=== PATIENT | female | born 1960 | race African-American/Black ===

== ENCOUNTER 2018-03-27 10:14 | Inpatient (IN) ==
[2018-03-27] MEDS ORDERED: ALBUTEROL/IPRATROPIUM 3 ML NEB RESP TX STA (11:26)
[2018-03-27] MEDS ORDERED: methylPREDNISolone SOD SUC 125 MG/2 ML VIAL IV STA (11:27)
[2018-03-27 12:20] LABS: Basophils % 0.2 % (0.0-0.8); Eosinophils % 0.1 % (0.00-10.9); Immature Granulocytes % 0.8 %; Immature Granulocytes Absolute 0.07 #; Lymphocytes # 0.9 10*3/uL (1.4-4.0); Lymphocytes % 10.8 % (21.3-54.2); Mean Corpuscular Hemoglobin 55 PG (27-34); Mean Corpuscular Volume 110.3 FL (87-102); Mean Platelet Volume 8.5 FL (9.6-12.0); Monocytes # 0.6 10*3/uL (0.11-0.8); Monocytes % 7.3 % (1.7-12.7); NRBC # 0.06 10*3/uL; Neutrophils # 6.8 10*3/uL (1.4-7.4); Neutrophils % 80.8 % (38.7-73.9); Platelet Count 391 T/CUMM (130-400); Red Blood Count 1.16 MC/CUMM (3.8-5.5); Red Cell Distribution Width 32.9 % (9.3-17.3); White Blood Count 8.4 T/CUMM (4-12)
[2018-03-27 12:51] LABS: Albumin 3.7 G/DL (3.4-5.0); Bilirubin,Total 2.5 MG/DL (0.2-1.0); Calcium 9.4 MG/DL (8.5-10.1); Osmolality,Calculated 267.1 MOS/KG (273-304); Potassium 3.9 MMOL/L (3.5-5.1)
[2018-03-27 12:54] LABS: Hematocrit 12.8 VOL% (35.7-47.0); Hemoglobin 6.4 GM/DL (12.0-16.0)
[2018-03-27] MEDS ORDERED: SODIUM CHLORIDE 0.9% 1,000 ML IV PRN ×2 (14:17→17:34)
[2018-03-27 14:36] LABS: Anisocytosis 1+; Microcytosis 1+; Polychromasia 2+; Spherocytes Few; Tear Drop Cells Few
[2018-03-27 14:37] LABS: Platelet Estimate Normal
[2018-03-27 15:33] LABS: Basophils % 0.2 % (0.0-0.8); Eosinophils % 0.1 % (0.00-10.9); Hematocrit 18.5 VOL% (35.7-47.0); Immature Granulocytes % 1.5 %; Immature Granulocytes Absolute 0.14 #; Lymphocytes # 0.5 10*3/uL (1.4-4.0); Mean Corpuscular HGB Conc 30.8 GM/DL (32-36); Mean Corpuscular Hemoglobin 30 PG (27-34); Mean Corpuscular Volume 95.9 FL (87-102); Mean Platelet Volume 8.7 FL (9.6-12.0); Monocytes # 0.2 10*3/uL (0.11-0.8); Monocytes % 2.1 % (1.7-12.7); NRBC # 0.07 10*3/uL; Neutrophils # 8.8 10*3/uL (1.4-7.4); Neutrophils % 91.1 % (38.7-73.9); Platelet Count 385 T/CUMM (130-400); Red Blood Count 1.93 MC/CUMM (3.8-5.5); Red Cell Distribution Width 20.4 % (9.3-17.3); White Blood Count 9.6 T/CUMM (4-12)
[2018-03-27] MEDS ORDERED: ONDANSETRON 4 MG/2 ML VIAL IV PRN (15:38)
[2018-03-27] MEDS ORDERED: MYLANTA/LIDO VISC 2:1 300 ML BOTTLE SWISH/SWAL PRN (15:38)
[2018-03-27] MEDS ORDERED: BENZTROPINE 2 MG/2 ML AMP IV PRN (15:38)
[2018-03-27] MEDS ORDERED: chlorproMAZINE INJ 50 MG in SODIUM CHLORIDE 0.9% 100 ML IV PRN (15:38)
[2018-03-27] MEDS ORDERED: chlorproMAZINE INJ 25 MG in SODIUM CHLORIDE 0.9% 100 ML IV PRN (15:38)
[2018-03-27] MEDS ORDERED: ACETAMINOPHEN 325 MG TABLET PO PRN (15:38)
[2018-03-27] MEDS ORDERED: MYLANTA/LIDO VISC 2:1 300 ML BOTTLE SWISH/SPIT PRN (15:38)
[2018-03-27] MEDS ORDERED: chlorproMAZINE 25 MG TABLET PO PRN (15:38)
[2018-03-27] MEDS ORDERED: ALUMINUM/MAGNES/SIMETH MAX STR 30 ML UDCUP PO PRN (15:38)
[2018-03-27] MEDS ORDERED: TEMAZEPAM 7.5 MG CAPSULE PO PRN (15:38)
[2018-03-27] MEDS ORDERED: MAGNESIUM HYDROXIDE SUSP 30 ML UDCUP PO PRN (15:38)
[2018-03-27] MEDS ORDERED: LACTULOSE 20 GM/30 ML UDCUP PO PRN (15:38)
[2018-03-27] MEDS ORDERED: diphenhydrAMINE CAP 25 MG CAPSULE PO PRN (15:38)
[2018-03-27] MEDS ORDERED: LOPERAMIDE 2 MG CAPSULE PO PRN ×2 (15:38)
[2018-03-27] MEDS ORDERED: PROMETHAZINE INJ 25 MG in SODIUM CHLORIDE 0.9% 50 ML IV PRN (15:38)
[2018-03-27 15:39] LABS: Hemoglobin 5.7 GM/DL (12.0-16.0)
[2018-03-27] MEDS ORDERED: SODIUM CHLORIDE 0.9% 1,000 ML IV SCH (16:00)
[2018-03-27 16:06] LABS: Band Neutrophils 1 % (0-10); Lymphocytes 5 % (20-55); Segmented Neutrophils 92 % (50-85); Total Cells Counted 100
[2018-03-27 16:08] LABS: Anisocytosis 1+
[2018-03-27 16:09] LABS: Microcytosis 1+; Polychromasia 2+; Tear Drop Cells Few
[2018-03-27 16:12] LABS: Platelet Estimate Normal
[2018-03-27] MEDS: CEFEPIME 1,000 MG in SYRINGE 1 EACH IV SCH (18:44)
[2018-03-27] MEDS: ALBUTEROL/IPRATROPIUM 3 ML NEB RESP TX SCH (20:40)
[2018-03-28] MEDS: ALBUTEROL/IPRATROPIUM 3 ML NEB RESP TX SCH ×4 (00:10→19:32)
[2018-03-28] MEDS: CEFEPIME 1,000 MG in SYRINGE 1 EACH IV SCH ×2 (05:28→17:36)
[2018-03-28 05:56] LABS: Basophils % 0.2 % (0.0-0.8); Hematocrit 23.8 VOL% (35.7-47.0); Hemoglobin 7.8 GM/DL (12.0-16.0); Immature Granulocytes % 0.9 %; Lymphocytes # 0.8 10*3/uL (1.4-4.0); Lymphocytes % 7.7 % (21.3-54.2); Mean Corpuscular HGB Conc 32.8 GM/DL (32-36); Mean Corpuscular Hemoglobin 33 PG (27-34); Mean Corpuscular Volume 99.2 FL (87-102); Mean Platelet Volume 8.5 FL (9.6-12.0); Monocytes % 9.8 % (1.7-12.7); NRBC # 0.07 10*3/uL; Neutrophils # 8.6 10*3/uL (1.4-7.4); Neutrophils % 81.4 % (38.7-73.9); Platelet Count 322 T/CUMM (130-400); White Blood Count 10.6 T/CUMM (4-12)
[2018-03-28 08:07] LABS: Calcium 8.7 MG/DL (8.5-10.1); Potassium 4.4 MMOL/L (3.5-5.1)
[2018-03-28] MEDS ORDERED: PANTOPRAZOLE 40 MG VIAL IV SCH (09:00)
[2018-03-28] MEDS: FOLIC ACID 1 MG TABLET PO SCH (10:09)
[2018-03-28 10:41] LABS: Apearance,Urine CLEAR (Clear); Bilirubin,Urine Negative (Negative); Blood, Urine Negative (Negative); Glucose,Urine (UA) 150 mg/dL (Negative); Ketones,Urine Negative (Negative); Mucus,Urine Occasional /LPF (Occasional); Nitrite,Urine Negative (Negative); Protein,Urine Negative; Squamous Epithelial Cell,Urine Occasional /HPF (0-10); Urine Color Yellow (Yellow); Urine Specific Gravity 1.017 (1.001-1.035); WBC,Urine 1 /HPF (0-6)
[2018-03-28 13:12] LABS: Anisocytosis 3+; Poikilocytosis 2+; Polychromasia 1+; Tear Drop Cells Slight
[2018-03-28] MEDS: ALPRAZolam 0.25 MG TABLET PO PRN ×2 (14:47→19:04)
[2018-03-28] MEDS: traMADol 50 MG TABLET PO PRN ×2 (14:47→19:03)
[2018-03-28 18:17] LABS: Lymphocytes,Pleural Fluid 57 %; Monocytes,Pleural Fluid 4 %; Neutrophils,Pleural Fluid 39 %
[2018-03-28 18:18] LABS: RBC,Pleural Fluid > 100000 T/CUMM
[2018-03-28] MEDS: MEPERIDINE 25 MG/1 ML VIAL IV PRN (21:24)
[2018-03-29] MEDS: ALBUTEROL/IPRATROPIUM 3 ML NEB RESP TX SCH ×4 (00:49→19:30)
[2018-03-29 04:21] LABS: Bilirubin,Total 2.1 MG/DL (0.2-1.0); Calcium 8.6 MG/DL (8.5-10.1); Osmolality,Calculated 272.8 MOS/KG (273-304); Total Protein 6.7 G/DL (6.4-8.3)
[2018-03-29 04:28] LABS: Total Protein 6.6 G/DL (6.4-8.3)
[2018-03-29] MEDS: CEFEPIME 1,000 MG in SYRINGE 1 EACH IV SCH ×2 (04:57→17:05)
[2018-03-29 05:23] LABS: Basophils % 0.2 % (0.0-0.8); Eosinophils % 0.2 % (0.00-10.9); Hematocrit 26.1 VOL% (35.7-47.0); Hemoglobin 8.4 GM/DL (12.0-16.0); Immature Granulocytes % 0.7 %; Immature Granulocytes Absolute 0.08 #; Mean Corpuscular HGB Conc 32.2 GM/DL (32-36); Mean Corpuscular Hemoglobin 30 PG (27-34); Mean Corpuscular Volume 94.2 FL (87-102); Mean Platelet Volume 8.4 FL (9.6-12.0); Monocytes # 0.7 10*3/uL (0.11-0.8); Monocytes % 5.7 % (1.7-12.7); NRBC # 0.04 10*3/uL; Neutrophils # 10.4 10*3/uL (1.4-7.4); Neutrophils % 85.2 % (38.7-73.9); Platelet Count 294 T/CUMM (130-400); Red Blood Count 2.77 MC/CUMM (3.8-5.5); Red Cell Distribution Width 20.7 % (9.3-17.3); White Blood Count 12.2 T/CUMM (4-12)
[2018-03-29 05:36] LABS: Hypochromasia 1+; Platelet Estimate Adequate
[2018-03-29 05:37] LABS: Microcytosis Slight
[2018-03-29 07:52] LABS: Immunoglobulin A (Chem) 212 MG/DL (70-400); Immunoglobulin G (Chem) 1040 MG/DL (700-1600); Immunoglobulin M (Chem) 66 MG/DL (40-230); Total Protein (Chem) 6.6 G/DL (6.4-8.3)
[2018-03-29] MEDS: FOLIC ACID 1 MG TABLET PO SCH (08:05)
[2018-03-29] MEDS: guaiFENesin 200 MG/10 ML UDCUP PO PRN (08:05)
[2018-03-29 10:15] LABS: Albumin (SPE) 3.9 G/DL (3.2-5.3); Albumin (SPE) Rel % 59.4 %; Alpha 1 (SPE) 0.3 G/DL (0.1-0.4); Alpha 1 (SPE) Rel % 4.1 %; Alpha 2 (SPE) 0.7 G/DL (0.4-1.0); Alpha 2 (SPE) Rel % 10.5 %; Beta (SPE) 0.6 G/DL (0.5-1.1); Beta (SPE) Rel % 9.7 %; Gamma (SPE) 1.1 G/DL (0.7-1.7); Gamma (SPE) Rel % 16.3 %
[2018-03-29] MEDS: ALPRAZolam 0.25 MG TABLET PO PRN (11:30)
[2018-03-30] MEDS: MEPERIDINE 25 MG/1 ML VIAL IV PRN (00:36)
[2018-03-30] MEDS: ALBUTEROL/IPRATROPIUM 3 ML NEB RESP TX SCH ×4 (01:13→19:26)
[2018-03-30] MEDS: CEFEPIME 1,000 MG in SYRINGE 1 EACH IV SCH ×2 (04:06→17:05)
[2018-03-30] MEDS: FOLIC ACID 1 MG TABLET PO SCH (08:15)
[2018-03-30] MEDS: guaiFENesin 200 MG/10 ML UDCUP PO PRN (08:15)
[2018-03-30 08:32] LABS: Immuno Free Light Chain Kappa 2.06 MG/DL (0.33-1.94); Immuno Free Light Chain Lambda 1.86 MG/DL (0.57-2.63); Immuno Free Light Chain Ratio 1.11 MG/DL (0.26-1.65)
[2018-03-30] MEDS ORDERED: fentaNYL 12 MCG/HR PATCH TRANSDERM SCH (09:00)
[2018-03-30] MEDS: POLYETHYLENE GLYCOL POWDER 17 GM PACK PO SCH (09:09)
[2018-03-31] MEDS: ALBUTEROL/IPRATROPIUM 3 ML NEB RESP TX SCH ×3 (00:20→13:08)
[2018-03-31] MEDS: MEPERIDINE 25 MG/1 ML VIAL IV PRN ×2 (00:33→09:07)
[2018-03-31] MEDS: CEFEPIME 1,000 MG in SYRINGE 1 EACH IV SCH ×2 (05:39→17:14)
[2018-03-31] MEDS: POLYETHYLENE GLYCOL POWDER 17 GM PACK PO SCH (09:01)
[2018-03-31] MEDS: FOLIC ACID 1 MG TABLET PO SCH (09:01)
[2018-03-31 16:44] VITALS: BP 122/70
== END 2018-03-31 17:55 | disposition home or self-care (01) | DRG 181 ==
LOC: N.ED 10:14 → N.EDINP 15:38 → N.ICU 16:40 → N.4E 03-30 09:51
PROVIDERS: ADMIT Specialist; ATTEND Specialist

== ENCOUNTER 2018-04-07 15:04 | Inpatient (IN) ==
[2018-04-07] MEDS ORDERED: MYLANTA/LIDO VISC 2:1 300 ML BOTTLE SWISH/SWAL PRN (17:18)
[2018-04-07] MEDS ORDERED: traMADol 50 MG TABLET PO PRN (17:18)
[2018-04-07] MEDS ORDERED: LACTULOSE 20 GM/30 ML UDCUP PO PRN (17:18)
[2018-04-07] MEDS ORDERED: LOPERAMIDE 2 MG CAPSULE PO PRN ×2 (17:18)
[2018-04-07] MEDS ORDERED: ACETAMINOPHEN 325 MG TABLET PO PRN (17:18)
[2018-04-07] MEDS ORDERED: diphenhydrAMINE CAP 25 MG CAPSULE PO PRN (17:18)
[2018-04-07] MEDS ORDERED: chlorproMAZINE 25 MG TABLET PO PRN (17:18)
[2018-04-07] MEDS ORDERED: ONDANSETRON 4 MG/2 ML VIAL IV PRN (17:18)
[2018-04-07] MEDS ORDERED: TEMAZEPAM 7.5 MG CAPSULE PO PRN (17:18)
[2018-04-07] MEDS ORDERED: MAGNESIUM HYDROXIDE SUSP 30 ML UDCUP PO PRN (17:18)
[2018-04-07] MEDS ORDERED: MYLANTA/LIDO VISC 2:1 300 ML BOTTLE SWISH/SPIT PRN (17:18)
[2018-04-07] MEDS ORDERED: BENZTROPINE 2 MG/2 ML AMP IV PRN (17:18)
[2018-04-07] MEDS ORDERED: chlorproMAZINE INJ 25 MG in SODIUM CHLORIDE 0.9% 100 ML IV PRN (17:18)
[2018-04-07] MEDS ORDERED: ALPRAZolam 0.25 MG TABLET PO PRN (17:18)
[2018-04-07] MEDS ORDERED: ALUMINUM/MAGNES/SIMETH MAX STR 30 ML UDCUP PO PRN (17:18)
[2018-04-07] MEDS ORDERED: guaiFENesin 200 MG/10 ML UDCUP PO PRN (17:18)
[2018-04-07] MEDS ORDERED: PROMETHAZINE INJ 25 MG in SODIUM CHLORIDE 0.9% 50 ML IV PRN (17:18)
[2018-04-07] MEDS ORDERED: chlorproMAZINE INJ 50 MG in SODIUM CHLORIDE 0.9% 100 ML IV PRN (17:18)
[2018-04-07 18:54] LABS: Albumin 3.4 G/DL (3.4-5.0); Bilirubin,Total 3.6 MG/DL (0.2-1.0); Calcium 9.1 MG/DL (8.5-10.1); Osmolality,Calculated 267.1 MOS/KG (273-304); Total Protein 7.6 G/DL (6.4-8.3); Uric Acid 4.5 MG/DL (2.6-6.0)
[2018-04-07 19:15] LABS: Basophils % 0.2 % (0.0-0.8); Eosinophils % 0.1 % (0.00-10.9); Hematocrit 19.5 VOL% (35.7-47.0); Immature Granulocytes % 1.2 %; Immature Granulocytes Absolute 0.11 #; Lymphocytes % 10.4 % (21.3-54.2); Mean Corpuscular HGB Conc 32.3 GM/DL (32-36); Mean Corpuscular Hemoglobin 30 PG (27-34); Mean Corpuscular Volume 92.4 FL (87-102); Mean Platelet Volume 8.6 FL (9.6-12.0); Monocytes # 0.9 10*3/uL (0.11-0.8); Monocytes % 9.8 % (1.7-12.7); NRBC # 0.07 10*3/uL; Neutrophils # 7.5 10*3/uL (1.4-7.4); Neutrophils % 78.3 % (38.7-73.9); Platelet Count 372 T/CUMM (130-400); Red Blood Count 2.11 MC/CUMM (3.8-5.5); Red Cell Distribution Width 20.4 % (9.3-17.3); White Blood Count 9.6 T/CUMM (4-12)
[2018-04-07 19:24] LABS: Hemoglobin 6.3 GM/DL (12.0-16.0)
[2018-04-07 19:49] LABS: Hematocrit 19.5 VOL% (35.7-47.0); Red Blood Count 2.11 MC/CUMM (3.8-5.5); White Blood Count 9.6 T/CUMM (4-12)
[2018-04-07 19:50] LABS: Mean Corpuscular HGB Conc 32.3 GM/DL (32-36); Mean Corpuscular Hemoglobin 30 PG (27-34); Mean Corpuscular Volume 92.4 FL (87-102); Mean Platelet Volume 8.6 FL (9.6-12.0); Platelet Count 372 T/CUMM (130-400); Red Cell Distribution Width 20.4 % (9.3-17.3)
[2018-04-07 19:51] LABS: Basophils % 0.2 % (0.0-0.8); Eosinophils % 0.1 % (0.00-10.9); Immature Granulocytes % 1.2 %; Lymphocytes % 10.4 % (21.3-54.2); Monocytes # 0.9 10*3/uL (0.11-0.8); Monocytes % 9.8 % (1.7-12.7); Neutrophils % 78.3 % (38.7-73.9)
[2018-04-07 19:52] LABS: Immature Granulocytes Absolute 0.11 #; Neutrophils # 7.5 10*3/uL (1.4-7.4)
[2018-04-07 19:56] LABS: Hemoglobin 6.3 GM/DL (12.0-16.0)
[2018-04-07 21:59] LABS: Lymphocytes 13 % (20-55); Nucleated Red Blood Cells 1 (0-5); Segmented Neutrophils 79 % (50-85); Total Cells Counted 100
[2018-04-07 22:00] LABS: Macrocytosis Slight; Platelet Estimate Normal; Polychromasia 1+
[2018-04-07] MEDS: SODIUM CHLORIDE 0.9% 1,000 ML IV SCH (23:02)
[2018-04-08] MEDS: HYDROmorphone 2 MG/1 ML VIAL IV PRN ×2 (00:15→18:56)
[2018-04-08] MEDS ORDERED: SODIUM CHLORIDE 0.9% 1,000 ML IV PRN (00:35)
[2018-04-08] MEDS: FOLIC ACID 1 MG TABLET PO SCH (11:18)
[2018-04-08 12:37] LABS: Albumin 3.5 G/DL (3.4-5.0); Bilirubin,Total 3.9 MG/DL (0.2-1.0); Calcium 9.1 MG/DL (8.5-10.1); Osmolality,Calculated 267.1 MOS/KG (273-304); Potassium 3.6 MMOL/L (3.5-5.1); Total Protein 7.8 G/DL (6.4-8.3)
[2018-04-08 12:47] LABS: Basophils % 0.4 % (0.0-0.8); Eosinophils % 0.2 % (0.00-10.9); Hematocrit 27.1 VOL% (35.7-47.0); Hemoglobin 9.4 GM/DL (12.0-16.0); Immature Granulocytes % 1.3 %; Immature Granulocytes Absolute 0.13 #; Lymphocytes # 0.8 10*3/uL (1.4-4.0); Lymphocytes % 7.9 % (21.3-54.2); Mean Corpuscular HGB Conc 34.7 GM/DL (32-36); Mean Corpuscular Hemoglobin 34 PG (27-34); Mean Corpuscular Volume 96.8 FL (87-102); Mean Platelet Volume 8.6 FL (9.6-12.0); Monocytes # 0.8 10*3/uL (0.11-0.8); Monocytes % 8.4 % (1.7-12.7); NRBC # 0.07 10*3/uL; Neutrophils # 8.2 10*3/uL (1.4-7.4); Neutrophils % 81.8 % (38.7-73.9); Platelet Count 329 T/CUMM (130-400); Red Cell Distribution Width 21.9 % (9.3-17.3)
[2018-04-08 14:22] LABS: Anisocytosis 2+; Polychromasia 1+
[2018-04-08 14:23] LABS: Microcytosis 1+; Spherocytes Slight
[2018-04-08 14:25] LABS: Platelet Estimate Normal
[2018-04-08] MEDS: SODIUM CHLORIDE 0.9% 1,000 ML IV SCH (19:00)
[2018-04-09] MEDS: HYDROmorphone 2 MG/1 ML VIAL IV PRN ×3 (03:03→22:17)
[2018-04-09] MEDS ORDERED: ACETAMINOPHEN 500 MG TABLET PO ONE (09:05)
[2018-04-09] MEDS ORDERED: diphenhydrAMINE CAP 25 MG CAPSULE PO ONE (09:06)
[2018-04-09] MEDS: FOLIC ACID 1 MG TABLET PO SCH (09:19)
[2018-04-09] MEDS ORDERED: RITUXIMAB IV ONE (10:00)
[2018-04-09] MEDS ORDERED: SODIUM CHLORIDE 0.9% IV ONE (10:00)
[2018-04-09] MEDS: SODIUM CHLORIDE 0.9% 1,000 ML IV SCH (22:21)
[2018-04-10 05:21] LABS: Albumin 2.9 G/DL (3.4-5.0); Bilirubin,Total 3.3 MG/DL (0.2-1.0); Calcium 8.8 MG/DL (8.5-10.1); Osmolality,Calculated 272.7 MOS/KG (273-304); Potassium 4.2 MMOL/L (3.5-5.1); Total Protein 6.5 G/DL (6.4-8.3)
[2018-04-10 05:23] LABS: Basophils % 0.3 % (0.0-0.8); Eosinophils # 0.1 10*3/uL (0.0-0.87); Eosinophils % 1.7 % (0.00-10.9); Hematocrit 23.2 VOL% (35.7-47.0); Hemoglobin 7.9 GM/DL (12.0-16.0); Immature Granulocytes % 0.7 %; Immature Granulocytes Absolute 0.04 #; Lymphocytes # 0.5 10*3/uL (1.4-4.0); Lymphocytes % 8.8 % (21.3-54.2); Mean Corpuscular HGB Conc 34.1 GM/DL (32-36); Mean Corpuscular Hemoglobin 33 PG (27-34); Mean Corpuscular Volume 97.1 FL (87-102); Mean Platelet Volume 8.6 FL (9.6-12.0); Monocytes # 0.5 10*3/uL (0.11-0.8); Monocytes % 8.3 % (1.7-12.7); NRBC # 0.02 10*3/uL; Neutrophils # 4.6 10*3/uL (1.4-7.4); Neutrophils % 80.2 % (38.7-73.9); Platelet Count 255 T/CUMM (130-400); Red Blood Count 2.39 MC/CUMM (3.8-5.5); Red Cell Distribution Width 20.7 % (9.3-17.3); White Blood Count 5.8 T/CUMM (4-12)
[2018-04-10 05:46] LABS: Anisocytosis 1+; Macrocytosis 1+; Platelet Estimate Normal; Polychromasia Few; Rouleau 2+
[2018-04-10 05:47] LABS: Giant Platelets Few
[2018-04-10] MEDS: HYDROmorphone 2 MG/1 ML VIAL IV PRN ×2 (06:11→17:54)
[2018-04-10] MEDS: FOLIC ACID 1 MG TABLET PO SCH (09:47)
[2018-04-11] MEDS: HYDROmorphone 2 MG/1 ML VIAL IV PRN ×3 (03:42→22:15)
[2018-04-11 08:16] LABS: Bilirubin,Total 2.8 MG/DL (0.2-1.0); Calcium 8.7 MG/DL (8.5-10.1); Osmolality,Calculated 272.7 MOS/KG (273-304); Potassium 4.1 MMOL/L (3.5-5.1); Total Protein 6.8 G/DL (6.4-8.3)
[2018-04-11 08:21] LABS: Basophils % 0.4 % (0.0-0.8); Eosinophils # 0.1 10*3/uL (0.0-0.87); Eosinophils % 0.9 % (0.00-10.9); Hematocrit 24.6 VOL% (35.7-47.0); Hemoglobin 7.8 GM/DL (12.0-16.0); Immature Granulocytes % 0.4 %; Immature Granulocytes Absolute 0.02 #; Lymphocytes # 0.6 10*3/uL (1.4-4.0); Lymphocytes % 11.7 % (21.3-54.2); Mean Corpuscular HGB Conc 31.7 GM/DL (32-36); Mean Corpuscular Hemoglobin 30 PG (27-34); Mean Corpuscular Volume 93.9 FL (87-102); Mean Platelet Volume 8.6 FL (9.6-12.0); Monocytes # 0.6 10*3/uL (0.11-0.8); Monocytes % 11.2 % (1.7-12.7); Neutrophils # 4.1 10*3/uL (1.4-7.4); Neutrophils % 75.4 % (38.7-73.9); Platelet Count 251 T/CUMM (130-400); Red Blood Count 2.62 MC/CUMM (3.8-5.5); Red Cell Distribution Width 18.3 % (9.3-17.3); White Blood Count 5.5 T/CUMM (4-12)
[2018-04-11] MEDS: FOLIC ACID 1 MG TABLET PO SCH (09:20)
[2018-04-11] MEDS: SODIUM CHLORIDE 0.9% 1,000 ML IV SCH (14:42)
[2018-04-12] MEDS: HYDROmorphone 2 MG/1 ML VIAL IV PRN ×2 (10:25→19:21)
[2018-04-12] MEDS: FOLIC ACID 1 MG TABLET PO SCH (10:26)
[2018-04-13 05:43] LABS: Albumin 3.2 G/DL (3.4-5.0); Bilirubin,Total 2.9 MG/DL (0.2-1.0); Calcium 9.1 MG/DL (8.5-10.1); Osmolality,Calculated 274.5 MOS/KG (273-304); Potassium 3.8 MMOL/L (3.5-5.1); Total Protein 6.9 G/DL (6.4-8.3)
[2018-04-13 06:35] LABS: Basophils % 0.5 % (0.0-0.8); Eosinophils % 0.5 % (0.00-10.9); Hematocrit 23.7 VOL% (35.7-47.0); Immature Granulocytes % 0.3 %; Immature Granulocytes Absolute 0.02 #; Lymphocytes # 0.6 10*3/uL (1.4-4.0); Lymphocytes % 10.5 % (21.3-54.2); Mean Corpuscular HGB Conc 32.9 GM/DL (32-36); Mean Corpuscular Hemoglobin 30 PG (27-34); Mean Corpuscular Volume 91.9 FL (87-102); Mean Platelet Volume 8.6 FL (9.6-12.0); Monocytes # 0.7 10*3/uL (0.11-0.8); Monocytes % 10.8 % (1.7-12.7); Neutrophils # 4.7 10*3/uL (1.4-7.4); Neutrophils % 77.4 % (38.7-73.9); Platelet Count 287 T/CUMM (130-400); Red Blood Count 2.58 MC/CUMM (3.8-5.5); Red Cell Distribution Width 18.5 % (9.3-17.3); White Blood Count 6.1 T/CUMM (4-12)
[2018-04-13 06:45] LABS: Hemoglobin 7.8 GM/DL (12.0-16.0)
[2018-04-13] MEDS: HYDROmorphone 2 MG/1 ML VIAL IV PRN ×3 (07:22→20:05)
[2018-04-13] MEDS: SODIUM CHLORIDE 0.9% 1,000 ML IV SCH ×2 (07:24→22:03)
[2018-04-13] MEDS: FOLIC ACID 1 MG TABLET PO SCH (09:01)
[2018-04-13] MEDS ORDERED: DEXAMETHASONE 10 MG/1 ML VIAL IV ONE (12:00)
[2018-04-13] MEDS ORDERED: PALONOSETRON 0.25 MG/5 ML VIAL IV ONE (12:00)
[2018-04-13] MEDS: DOXORUBICIN IV SCH (13:59)
[2018-04-13] MEDS: SODIUM CHLORIDE 0.9% IV SCH (13:59)
[2018-04-13] MEDS: DACARBAZINE IV SCH (13:59)
[2018-04-13 14:53] LABS: Mycoplasma pneumoniae Ab, IgG Negative (Negative); Mycoplasma pneumoniae Ab, IgM Negative (Negative)
[2018-04-14] MEDS: HYDROmorphone 2 MG/1 ML VIAL IV PRN ×3 (04:30→19:43)
[2018-04-14 06:05] LABS: Basophils % 0.1 % (0.0-0.8); Hematocrit 22.2 VOL% (35.7-47.0); Hemoglobin 7.3 GM/DL (12.0-16.0); Immature Granulocytes % 0.6 %; Immature Granulocytes Absolute 0.05 #; Lymphocytes # 0.6 10*3/uL (1.4-4.0); Lymphocytes % 6.8 % (21.3-54.2); Mean Corpuscular HGB Conc 32.9 GM/DL (32-36); Mean Corpuscular Hemoglobin 32 PG (27-34); Mean Corpuscular Volume 96.1 FL (87-102); Mean Platelet Volume 8.9 FL (9.6-12.0); Monocytes # 0.9 10*3/uL (0.11-0.8); Monocytes % 10.6 % (1.7-12.7); Neutrophils % 81.9 % (38.7-73.9); Platelet Count 271 T/CUMM (130-400); Red Blood Count 2.31 MC/CUMM (3.8-5.5); Red Cell Distribution Width 18.2 % (9.3-17.3); White Blood Count 8.6 T/CUMM (4-12)
[2018-04-14 06:12] LABS: Albumin 3.1 G/DL (3.4-5.0); Bilirubin,Total 1.8 MG/DL (0.2-1.0); Calcium 9.2 MG/DL (8.5-10.1); Osmolality,Calculated 274.7 MOS/KG (273-304); Potassium 3.7 MMOL/L (3.5-5.1)
[2018-04-14] MEDS: FOLIC ACID 1 MG TABLET PO SCH (09:32)
[2018-04-14] MEDS: ONDANSETRON 4 MG/2 ML VIAL IV PRN (13:14)
[2018-04-14] MEDS: DACARBAZINE IV SCH (15:18)
[2018-04-14] MEDS: DOXORUBICIN IV SCH (15:18)
[2018-04-14] MEDS: SODIUM CHLORIDE 0.9% IV SCH (15:18)
[2018-04-15] MEDS: HYDROmorphone 2 MG/1 ML VIAL IV PRN ×3 (03:59→20:04)
[2018-04-15 06:14] LABS: Albumin 2.9 G/DL (3.4-5.0); Bilirubin,Total 1.9 MG/DL (0.2-1.0); Calcium 8.7 MG/DL (8.5-10.1); Osmolality,Calculated 275.5 MOS/KG (273-304); Potassium 3.7 MMOL/L (3.5-5.1); Total Protein 6.6 G/DL (6.4-8.3)
[2018-04-15 06:28] LABS: Basophils % 0.1 % (0.0-0.8); Eosinophils % 0.1 % (0.00-10.9); Hematocrit 18.7 VOL% (35.7-47.0); Immature Granulocytes % 0.6 %; Immature Granulocytes Absolute 0.04 #; Lymphocytes # 0.7 10*3/uL (1.4-4.0); Mean Corpuscular HGB Conc 36.9 GM/DL (32-36); Mean Corpuscular Hemoglobin 37 PG (27-34); Mean Corpuscular Volume 98.9 FL (87-102); Monocytes # 0.7 10*3/uL (0.11-0.8); Monocytes % 9.5 % (1.7-12.7); Neutrophils # 5.4 10*3/uL (1.4-7.4); Neutrophils % 79.7 % (38.7-73.9); Platelet Count 256 T/CUMM (130-400); Red Blood Count 1.89 MC/CUMM (3.8-5.5); Red Cell Distribution Width 20.8 % (9.3-17.3); White Blood Count 6.8 T/CUMM (4-12)
[2018-04-15 06:31] LABS: Hemoglobin 6.9 GM/DL (12.0-16.0)
[2018-04-15] MEDS: ONDANSETRON 4 MG/2 ML VIAL IV PRN ×2 (08:18→20:00)
[2018-04-15] MEDS: FOLIC ACID 1 MG TABLET PO SCH (08:22)
[2018-04-15] MEDS ORDERED: SODIUM CHLORIDE 0.9% 1,000 ML IV PRN (08:53)
[2018-04-15] MEDS ORDERED: PALONOSETRON 0.25 MG/5 ML VIAL IV ONE (08:55)
[2018-04-15] MEDS ORDERED: DEXAMETHASONE 10 MG/1 ML VIAL IV ONE (08:55)
[2018-04-15] MEDS: SODIUM CHLORIDE 0.45% 1,000 ML IV SCH (09:57)
[2018-04-15] MEDS: SODIUM CHLORIDE 0.9% 1,000 ML IV SCH ×2 (10:58→10:59)
[2018-04-15] MEDS: SODIUM CHLORIDE 0.9% IV SCH (17:06)
[2018-04-15] MEDS: DACARBAZINE IV SCH (17:06)
[2018-04-15] MEDS: DOXORUBICIN IV SCH (17:06)
[2018-04-16] MEDS: ONDANSETRON 4 MG/2 ML VIAL IV PRN (05:21)
[2018-04-16 06:12] LABS: Albumin 2.9 G/DL (3.4-5.0); Bilirubin,Total 1.8 MG/DL (0.2-1.0); Calcium 8.6 MG/DL (8.5-10.1); Osmolality,Calculated 272.7 MOS/KG (273-304); Potassium 3.6 MMOL/L (3.5-5.1); Total Protein 6.3 G/DL (6.4-8.3)
[2018-04-16] MEDS: HYDROmorphone 2 MG/1 ML VIAL IV PRN ×2 (06:31→15:07)
[2018-04-16 06:49] LABS: Basophils % 0.1 % (0.0-0.8); Hematocrit 26.4 VOL% (35.7-47.0); Hemoglobin 8.7 GM/DL (12.0-16.0); Immature Granulocytes % 0.5 %; Immature Granulocytes Absolute 0.04 #; Lymphocytes # 0.5 10*3/uL (1.4-4.0); Lymphocytes % 5.8 % (21.3-54.2); Mean Corpuscular Hemoglobin 30 PG (27-34); Mean Corpuscular Volume 91.3 FL (87-102); Mean Platelet Volume 8.7 FL (9.6-12.0); Monocytes # 0.7 10*3/uL (0.11-0.8); Monocytes % 9.2 % (1.7-12.7); Neutrophils # 6.6 10*3/uL (1.4-7.4); Neutrophils % 84.4 % (38.7-73.9); Platelet Count 243 T/CUMM (130-400); Red Blood Count 2.89 MC/CUMM (3.8-5.5); White Blood Count 7.8 T/CUMM (4-12)
[2018-04-16 07:05] LABS: Anisocytosis 2+; Platelet Estimate Normal
[2018-04-16 07:06] LABS: Macrocytosis Slight; Polychromasia Slight
[2018-04-16] MEDS: SODIUM CHLORIDE 0.45% 1,000 ML IV SCH ×2 (08:22→22:50)
[2018-04-16] MEDS: FOLIC ACID 1 MG TABLET PO SCH (08:22)
[2018-04-16] MEDS ORDERED: FOSAPREPITANT 150 MG in SODIUM CHLORIDE 0.9% 100 ML IV ONE (09:00)
[2018-04-16] MEDS: DOXORUBICIN IV SCH (18:32)
[2018-04-16] MEDS: DACARBAZINE IV SCH (18:32)
[2018-04-16] MEDS: SODIUM CHLORIDE 0.9% IV SCH (18:32)
[2018-04-17 07:10] LABS: Albumin 2.9 G/DL (3.4-5.0); Bilirubin,Total 2.3 MG/DL (0.2-1.0); Calcium 8.9 MG/DL (8.5-10.1); Osmolality,Calculated 272.7 MOS/KG (273-304); Potassium 3.4 MMOL/L (3.5-5.1); Total Protein 6.4 G/DL (6.4-8.3)
[2018-04-17 07:12] LABS: Basophils % 0.2 % (0.0-0.8); Hematocrit 27.9 VOL% (35.7-47.0); Hemoglobin 9.3 GM/DL (12.0-16.0); Immature Granulocytes % 0.2 %; Immature Granulocytes Absolute 0.01 #; Lymphocytes # 0.3 10*3/uL (1.4-4.0); Lymphocytes % 5.6 % (21.3-54.2); Mean Corpuscular HGB Conc 33.3 GM/DL (32-36); Mean Corpuscular Hemoglobin 30 PG (27-34); Mean Corpuscular Volume 90.6 FL (87-102); Mean Platelet Volume 8.7 FL (9.6-12.0); Monocytes # 0.4 10*3/uL (0.11-0.8); Monocytes % 6.8 % (1.7-12.7); Neutrophils # 5.1 10*3/uL (1.4-7.4); Neutrophils % 87.2 % (38.7-73.9); Platelet Count 229 T/CUMM (130-400); Red Blood Count 3.08 MC/CUMM (3.8-5.5); Red Cell Distribution Width 17.4 % (9.3-17.3); White Blood Count 5.9 T/CUMM (4-12)
[2018-04-17 07:27] LABS: Platelet Estimate Normal
[2018-04-17] MEDS: HYDROmorphone 2 MG/1 ML VIAL IV PRN ×2 (08:44→17:58)
[2018-04-17] MEDS: FOLIC ACID 1 MG TABLET PO SCH (08:45)
[2018-04-18] MEDS: SODIUM CHLORIDE 0.45% 1,000 ML IV SCH ×2 (05:12)
[2018-04-18] MEDS ORDERED: SODIUM CHLORIDE 0.9% IV ONE ×2 (08:00→13:00)
[2018-04-18] MEDS ORDERED: RITUXIMAB IV ONE ×2 (08:00→13:00)
[2018-04-18] MEDS: FILGRASTIM-SNDZ 300 MCG/0.5 ML SYRINGE SUBCUT SCH (08:33)
[2018-04-18] MEDS: FOLIC ACID 1 MG TABLET PO SCH (08:33)
[2018-04-18] MEDS: HYDROmorphone 2 MG/1 ML VIAL IV PRN ×2 (08:34→18:41)
[2018-04-18] MEDS ORDERED: PALONOSETRON 0.25 MG/5 ML VIAL IV ONE (12:44)
[2018-04-18] MEDS ORDERED: DEXAMETHASONE 10 MG/1 ML VIAL IV ONE (12:44)
[2018-04-18] MEDS ORDERED: FAMOTIDINE 20 MG/2 ML VIAL IV ONE (12:44)
[2018-04-19 03:29] LABS: Basophils % 0.1 % (0.0-0.8); Hematocrit 27.8 VOL% (35.7-47.0); Hemoglobin 9.4 GM/DL (12.0-16.0); Immature Granulocytes % 6.1 %; Immature Granulocytes Absolute 1.32 #; Lymphocytes # 0.2 10*3/uL (1.4-4.0); Lymphocytes % 0.8 % (21.3-54.2); Mean Corpuscular HGB Conc 33.8 GM/DL (32-36); Mean Corpuscular Hemoglobin 31 PG (27-34); Mean Corpuscular Volume 91.4 FL (87-102); Mean Platelet Volume 8.5 FL (9.6-12.0); Monocytes # 0.2 10*3/uL (0.11-0.8); Monocytes % 0.8 % (1.7-12.7); Neutrophils % 92.2 % (38.7-73.9); Platelet Count 180 T/CUMM (130-400); Red Blood Count 3.04 MC/CUMM (3.8-5.5); Red Cell Distribution Width 16.4 % (9.3-17.3); White Blood Count 21.8 T/CUMM (4-12)
[2018-04-19 03:44] LABS: Band Neutrophils 2 % (0-10); Segmented Neutrophils 98 % (50-85); Total Cells Counted 100
[2018-04-19 03:45] LABS: Anisocytosis 1+
[2018-04-19] MEDS: SODIUM CHLORIDE 0.45% 1,000 ML IV SCH (03:45)
[2018-04-19 03:46] LABS: Albumin 2.9 G/DL (3.4-5.0); Bilirubin,Total 1.4 MG/DL (0.2-1.0); Calcium 8.8 MG/DL (8.5-10.1); Osmolality,Calculated 268.1 MOS/KG (273-304); Platelet Estimate Adequate; Total Protein 6.6 G/DL (6.4-8.3)
[2018-04-19] MEDS: FOLIC ACID 1 MG TABLET PO SCH (08:50)
[2018-04-19] MEDS: FILGRASTIM-SNDZ 300 MCG/0.5 ML SYRINGE SUBCUT SCH (08:50)
[2018-04-19] MEDS: HYDROmorphone 2 MG/1 ML VIAL IV PRN (08:57)
[2018-04-19] MEDS ORDERED: ALTEPLASE 2 MG VIAL INTRACATH ONE (11:00)
[2018-04-19 17:23] VITALS: BP 129/83
== END 2018-04-19 16:02 | disposition home or self-care, planned readmission (81) | DRG 543 ==
LOC: N.4E 15:25
PROVIDERS: ADMIT Specialist; ATTEND Specialist

== ENCOUNTER 2018-05-24 11:15 | Inpatient (IN) ==
[2018-05-24] MEDS ORDERED: ALUMINUM/MAGNES/SIMETH MAX STR 30 ML UDCUP PO PRN (12:35)
[2018-05-24] MEDS ORDERED: LOPERAMIDE 2 MG CAPSULE PO PRN ×2 (12:35)
[2018-05-24] MEDS ORDERED: PROMETHAZINE INJ 25 MG in SODIUM CHLORIDE 0.9% 50 ML IV PRN (12:35)
[2018-05-24] MEDS ORDERED: guaiFENesin 200 MG/10 ML UDCUP PO PRN (12:35)
[2018-05-24] MEDS ORDERED: TEMAZEPAM 7.5 MG CAPSULE PO PRN (12:35)
[2018-05-24] MEDS ORDERED: ONDANSETRON 4 MG/2 ML VIAL IV PRN (12:35)
[2018-05-24] MEDS ORDERED: chlorproMAZINE 25 MG TABLET PO PRN (12:35)
[2018-05-24] MEDS ORDERED: ACETAMINOPHEN 325 MG TABLET PO PRN (12:35)
[2018-05-24] MEDS ORDERED: MAGNESIUM HYDROXIDE SUSP 30 ML UDCUP PO PRN (12:35)
[2018-05-24] MEDS ORDERED: traMADol 50 MG TABLET PO PRN (12:35)
[2018-05-24] MEDS ORDERED: ALPRAZolam 0.25 MG TABLET PO PRN (12:35)
[2018-05-24] MEDS ORDERED: BENZTROPINE 2 MG/2 ML AMP IV PRN (12:35)
[2018-05-24] MEDS ORDERED: MYLANTA/LIDO VISC 2:1 300 ML BOTTLE SWISH/SPIT PRN (12:35)
[2018-05-24] MEDS ORDERED: diphenhydrAMINE CAP 25 MG CAPSULE PO PRN (12:35)
[2018-05-24] MEDS ORDERED: chlorproMAZINE INJ 50 MG in SODIUM CHLORIDE 0.9% 100 ML IV PRN (12:35)
[2018-05-24] MEDS ORDERED: LACTULOSE 20 GM/30 ML UDCUP PO PRN (12:35)
[2018-05-24] MEDS ORDERED: MYLANTA/LIDO VISC 2:1 300 ML BOTTLE SWISH/SWAL PRN (12:35)
[2018-05-24] MEDS ORDERED: chlorproMAZINE INJ 25 MG in SODIUM CHLORIDE 0.9% 100 ML IV PRN (12:35)
[2018-05-24] MEDS ORDERED: PALONOSETRON 0.25 MG/5 ML VIAL IV ONE (12:45)
[2018-05-24] MEDS ORDERED: DEXAMETHASONE 10 MG/1 ML VIAL IV ONE (12:45)
[2018-05-24] MEDS ORDERED: FAMOTIDINE 20 MG/2 ML VIAL IV ONE (12:46)
[2018-05-24] MEDS: SODIUM CHLORIDE 0.9% IV SCH (14:42)
[2018-05-24] MEDS: DOXORUBICIN IV SCH (14:42)
[2018-05-24] MEDS: DACARBAZINE IV SCH (14:42)
[2018-05-24 23:35] LABS: Apearance,Urine CLEAR (Clear); Bilirubin,Urine Negative (Negative); Blood, Urine Negative (Negative); Glucose,Urine (UA) Negative (Negative); Ketones,Urine Negative (Negative); Mucus,Urine Occasional /LPF (Occasional); Nitrite,Urine Negative (Negative); Protein,Urine 30 MG/DL; RBC,Urine 1 /HPF (0-4); Squamous Epithelial Cell,Urine Occasional /HPF (0-10); Urine Color Yellow (Yellow); Urine Specific Gravity 1.048 (1.001-1.035); WBC,Urine 2 /HPF (0-6)
[2018-05-25] MEDS: POTASSIUM CHLORIDE 20 MEQ TABLET PO SCH (11:22)
[2018-05-25] MEDS: FOLIC ACID 0.4 MG TABLET PO SCH (11:22)
[2018-05-25] MEDS: DOXORUBICIN IV SCH (15:02)
[2018-05-25] MEDS: SODIUM CHLORIDE 0.9% IV SCH (15:02)
[2018-05-25] MEDS: DACARBAZINE IV SCH (15:02)
[2018-05-26] MEDS ORDERED: FOSAPREPITANT 150 MG in SODIUM CHLORIDE 0.9% 100 ML IV ONE (08:23)
[2018-05-26] MEDS: FOLIC ACID 0.4 MG TABLET PO SCH (09:44)
[2018-05-26] MEDS: POTASSIUM CHLORIDE 20 MEQ TABLET PO SCH (09:44)
[2018-05-26] MEDS: SODIUM CHLORIDE 0.9% IV SCH (15:40)
[2018-05-26] MEDS: DACARBAZINE IV SCH (15:40)
[2018-05-26] MEDS: DOXORUBICIN IV SCH (15:40)
[2018-05-27] MEDS: FOLIC ACID 0.4 MG TABLET PO SCH (08:28)
[2018-05-27] MEDS: POTASSIUM CHLORIDE 20 MEQ TABLET PO SCH (08:31)
[2018-05-28 05:46] LABS: Basophils % 0.4 % (0.0-0.8); Eosinophils # 0.1 10*3/uL (0.0-0.87); Eosinophils % 1.4 % (0.00-10.9); Hematocrit 27.3 VOL% (35.7-47.0); Hemoglobin 9.9 GM/DL (12.0-16.0); Immature Granulocytes % 0.2 %; Immature Granulocytes Absolute 0.01 #; Lymphocytes # 0.3 10*3/uL (1.4-4.0); Lymphocytes % 6.5 % (21.3-54.2); Mean Corpuscular HGB Conc 36.3 GM/DL (32-36); Mean Corpuscular Hemoglobin 35 PG (27-34); Mean Corpuscular Volume 97.5 FL (87-102); Monocytes # 0.9 10*3/uL (0.11-0.8); Monocytes % 16.7 % (1.7-12.7); Neutrophils # 3.8 10*3/uL (1.4-7.4); Neutrophils % 74.8 % (38.7-73.9); Platelet Count 242 T/CUMM (130-400); Red Cell Distribution Width 20.1 % (9.3-17.3); White Blood Count 5.1 T/CUMM (4-12)
[2018-05-28 06:04] LABS: Calcium 8.7 MG/DL (8.5-10.1); Potassium 3.7 MMOL/L (3.5-5.1)
[2018-05-28 06:47] LABS: Anisocytosis Slight; Band Neutrophils 4 % (0-10); Lymphocytes 7 % (20-55); Macrocytosis Slight; Metamyelocytes 2 %; Ovalocytes Few; Platelet Estimate Normal; Segmented Neutrophils 69 % (50-85); Total Cells Counted 100
[2018-05-28] MEDS: POTASSIUM CHLORIDE 20 MEQ TABLET PO SCH (09:13)
[2018-05-28] MEDS: FOLIC ACID 0.4 MG TABLET PO SCH (09:13)
[2018-05-28 16:08] VITALS: BP 151/89
== END 2018-05-28 16:32 | disposition home or self-care, planned readmission (81) | DRG 847 ==
LOC: N.4E 11:15
PROVIDERS: ADMIT Specialist; ATTEND Specialist

== ENCOUNTER 2018-06-14 08:00 | Inpatient (IN) ==
[2018-06-14] MEDS ORDERED: chlorproMAZINE 25 MG TABLET PO PRN (09:18)
[2018-06-14] MEDS ORDERED: chlorproMAZINE INJ 25 MG in SODIUM CHLORIDE 0.9% 100 ML IV PRN (09:18)
[2018-06-14] MEDS ORDERED: ONDANSETRON 4 MG/2 ML VIAL IV PRN (09:18)
[2018-06-14] MEDS ORDERED: ACETAMINOPHEN 325 MG TABLET PO PRN (09:18)
[2018-06-14] MEDS ORDERED: LOPERAMIDE 2 MG CAPSULE PO PRN ×2 (09:18)
[2018-06-14] MEDS ORDERED: MYLANTA/LIDO VISC 2:1 300 ML BOTTLE SWISH/SWAL PRN (09:18)
[2018-06-14] MEDS ORDERED: guaiFENesin 200 MG/10 ML UDCUP PO PRN (09:18)
[2018-06-14] MEDS ORDERED: BENZTROPINE 2 MG/2 ML AMP IV PRN (09:18)
[2018-06-14] MEDS ORDERED: PROMETHAZINE INJ 25 MG in SODIUM CHLORIDE 0.9% 50 ML IV PRN (09:18)
[2018-06-14] MEDS ORDERED: ALPRAZolam 0.25 MG TABLET PO PRN (09:18)
[2018-06-14] MEDS ORDERED: ALUMINUM/MAGNES/SIMETH MAX STR 30 ML UDCUP PO PRN (09:18)
[2018-06-14] MEDS ORDERED: chlorproMAZINE INJ 50 MG in SODIUM CHLORIDE 0.9% 100 ML IV PRN (09:18)
[2018-06-14] MEDS ORDERED: MAGNESIUM HYDROXIDE SUSP 30 ML UDCUP PO PRN (09:18)
[2018-06-14] MEDS ORDERED: MYLANTA/LIDO VISC 2:1 300 ML BOTTLE SWISH/SPIT PRN (09:18)
[2018-06-14] MEDS ORDERED: LACTULOSE 20 GM/30 ML UDCUP PO PRN (09:18)
[2018-06-14] MEDS ORDERED: traMADol 50 MG TABLET PO PRN (09:18)
[2018-06-14] MEDS ORDERED: TEMAZEPAM 7.5 MG CAPSULE PO PRN (09:18)
[2018-06-14] MEDS ORDERED: diphenhydrAMINE CAP 25 MG CAPSULE PO PRN (09:18)
[2018-06-14 09:31] LABS: Basophils % 0.5 % (0.0-0.8); Hematocrit 22.1 VOL% (35.7-47.0); Hemoglobin 8.2 GM/DL (12.0-16.0); Immature Granulocytes % 1.2 %; Immature Granulocytes Absolute 0.07 #; Lymphocytes # 0.4 10*3/uL (1.4-4.0); Lymphocytes % 6.2 % (21.3-54.2); Mean Corpuscular HGB Conc 37.1 GM/DL (32-36); Mean Corpuscular Hemoglobin 37 PG (27-34); Mean Corpuscular Volume 99.1 FL (87-102); Mean Platelet Volume 8.6 FL (9.6-12.0); Monocytes % 17.4 % (1.7-12.7); Neutrophils # 4.3 10*3/uL (1.4-7.4); Neutrophils % 74.7 % (38.7-73.9); Platelet Count 320 T/CUMM (130-400); Red Blood Count 2.23 MC/CUMM (3.8-5.5); White Blood Count 5.7 T/CUMM (4-12)
[2018-06-14 09:52] LABS: Calcium 9.6 MG/DL (8.5-10.1); Eosinophils 1 % (0-10); Hypochromasia 1+; Lymphocytes 2 % (20-55); Osmolality,Calculated 265.4 MOS/KG (273-304); Ovalocytes Slight; Platelet Estimate Adequate; Potassium 4.1 MMOL/L (3.5-5.1); Segmented Neutrophils 84 % (50-85); Total Cells Counted 100
[2018-06-14 09:53] LABS: Macrocytosis Slight
[2018-06-14 10:04] LABS: Albumin 3.4 G/DL (3.4-5.0); Bilirubin,Total 1.6 MG/DL (0.2-1.0); Calcium 9.6 MG/DL (8.5-10.1); Osmolality,Calculated 265.4 MOS/KG (273-304); Potassium 4.2 MMOL/L (3.5-5.1); Total Protein 7.9 G/DL (6.4-8.3)
[2018-06-14] MEDS ORDERED: PALONOSETRON 0.25 MG/5 ML VIAL IV ONE (14:54)
[2018-06-14] MEDS ORDERED: DEXAMETHASONE 10 MG/1 ML VIAL IV ONE (14:55)
[2018-06-14] MEDS ORDERED: FOSAPREPITANT 150 MG in SODIUM CHLORIDE 0.9% 100 ML IV ONE (14:55)
[2018-06-14] MEDS ORDERED: FAMOTIDINE 20 MG/2 ML VIAL IV ONE (15:47)
[2018-06-14] MEDS: DACARBAZINE IV SCH (17:31)
[2018-06-14] MEDS: SODIUM CHLORIDE 0.9% IV SCH (17:31)
[2018-06-14] MEDS: DOXORUBICIN IV SCH (17:31)
[2018-06-14 18:20] LABS: Apearance,Urine CLEAR (Clear); Bilirubin,Urine Negative (Negative); Blood, Urine Negative (Negative); Glucose,Urine (UA) Negative (Negative); Ketones,Urine 20 mg/dL (Negative); Mucus,Urine Many /LPF (Occasional); Nitrite,Urine Negative (Negative); Protein,Urine 30 MG/DL; RBC,Urine 1 /HPF (0-4); Squamous Epithelial Cell,Urine Occasional /HPF (0-10); Urine Color Amber (Yellow); Urine Specific Gravity 1.023 (1.001-1.035); WBC,Urine 5 /HPF (0-6)
[2018-06-15 04:53] LABS: Basophils % 0.2 % (0.0-0.8); Hematocrit 21.9 VOL% (35.7-47.0); Hemoglobin 7.2 GM/DL (12.0-16.0); Immature Granulocytes % 2.3 %; Immature Granulocytes Absolute 0.13 #; Lymphocytes # 0.4 10*3/uL (1.4-4.0); Lymphocytes % 6.5 % (21.3-54.2); Mean Corpuscular HGB Conc 32.9 GM/DL (32-36); Mean Corpuscular Hemoglobin 33 PG (27-34); Mean Corpuscular Volume 99.1 FL (87-102); Mean Platelet Volume 8.8 FL (9.6-12.0); Monocytes # 0.4 10*3/uL (0.11-0.8); Monocytes % 6.7 % (1.7-12.7); Neutrophils # 4.8 10*3/uL (1.4-7.4); Neutrophils % 84.3 % (38.7-73.9); Platelet Count 321 T/CUMM (130-400); Red Blood Count 2.21 MC/CUMM (3.8-5.5); Red Cell Distribution Width 16.8 % (9.3-17.3); White Blood Count 5.7 T/CUMM (4-12)
[2018-06-15] MEDS ORDERED: SODIUM CHLORIDE 0.9% 1,000 ML IV PRN (08:54)
[2018-06-15] MEDS ORDERED: FOSAPREPITANT 150 MG in SODIUM CHLORIDE 0.9% 100 ML IV ONE (09:27)
[2018-06-15] MEDS: DACARBAZINE IV SCH (17:19)
[2018-06-15] MEDS: SODIUM CHLORIDE 0.9% IV SCH (17:19)
[2018-06-15] MEDS: DOXORUBICIN IV SCH (17:19)
[2018-06-16 08:01] LABS: Basophils % 0.6 % (0.0-0.8); Eosinophils % 0.3 % (0.00-10.9); Hematocrit 28.4 VOL% (35.7-47.0); Hemoglobin 9.2 GM/DL (12.0-16.0); Immature Granulocytes % 1.1 %; Immature Granulocytes Absolute 0.08 #; Lymphocytes # 0.5 10*3/uL (1.4-4.0); Lymphocytes % 6.6 % (21.3-54.2); Mean Corpuscular HGB Conc 32.4 GM/DL (32-36); Mean Corpuscular Hemoglobin 29 PG (27-34); Mean Corpuscular Volume 87.9 FL (87-102); Mean Platelet Volume 8.5 FL (9.6-12.0); Monocytes % 14.7 % (1.7-12.7); Neutrophils # 5.4 10*3/uL (1.4-7.4); Neutrophils % 76.7 % (38.7-73.9); Platelet Count 259 T/CUMM (130-400); Red Blood Count 3.23 MC/CUMM (3.8-5.5); Red Cell Distribution Width 18.3 % (9.3-17.3)
[2018-06-16 08:32] LABS: Albumin 2.8 G/DL (3.4-5.0); Bilirubin,Total 1.1 MG/DL (0.2-1.0); Calcium 8.2 MG/DL (8.5-10.1); Osmolality,Calculated 271.7 MOS/KG (273-304); Potassium 3.5 MMOL/L (3.5-5.1); Total Protein 6.3 G/DL (6.4-8.3)
[2018-06-16] MEDS: SODIUM CHLORIDE 0.9% IV SCH (16:56)
[2018-06-16] MEDS: DACARBAZINE IV SCH (16:56)
[2018-06-16] MEDS: DOXORUBICIN IV SCH (16:56)
[2018-06-17 16:42] VITALS: BP 149/78
== END 2018-06-17 18:30 | disposition home or self-care (01) | DRG 847 ==
LOC: N.4E 08:01
PROVIDERS: ADMIT Specialist; ATTEND Specialist

== ENCOUNTER 2019-01-17 16:53 | Inpatient (IN) ==
[2019-01-17] MEDS ORDERED: HYDROmorphone 2 MG/1 ML VIAL IV STA (17:45)
[2019-01-17] MEDS ORDERED: PANTOPRAZOLE 40 MG VIAL IV STA (17:45)
[2019-01-17] MEDS ORDERED: ONDANSETRON 4 MG/2 ML VIAL IV STA (17:45)
[2019-01-17 18:18] LABS: Basophils % 0.3 % (0.0-0.8); Hematocrit 29.7 VOL% (35.7-47.0); Hemoglobin 9.9 GM/DL (12.0-16.0); Immature Granulocytes % 0.3 %; Immature Granulocytes Absolute 0.02 #; Lymphocytes # 0.9 10*3/uL (1.4-4.0); Lymphocytes % 14.5 % (21.3-54.2); Mean Corpuscular HGB Conc 33.3 GM/DL (32-36); Mean Corpuscular Volume 108.4 FL (87-102); Mean Platelet Volume 8.1 FL (9.6-12.0); Monocytes % 16.1 % (1.7-12.7); Neutrophils % 68.8 % (38.7-73.9); Platelet Count 245 T/CUMM (130-400); Red Blood Count 2.74 MC/CUMM (3.8-5.5)
[2019-01-17 18:44] LABS: Alanine Aminotransferase 28 U/L (13-56); Albumin 3.8 G/DL (3.4-5.0); Alkaline Phosphatase 111 U/L (45-117); Amylase 61 U/L (25-115); Aspartate Amino Transferase 21 U/L (0-37); Blood Urea Nitrogen 8 MG/DL (7-18); Glucose 96 MG/DL (74-106); Osmolality,Calculated 255.9 MOS/KG (273-304); Total Protein 7.8 G/DL (6.4-8.3)
[2019-01-17 18:48] LABS: Anisocytosis 1+; Band Neutrophils 2 % (0-10); Hypochromasia 1+; Lymphocytes 15 % (20-55); Platelet Estimate Normal; Polychromasia Slight; Segmented Neutrophils 67 % (50-85); Total Cells Counted 100
[2019-01-17] MEDS ORDERED: MEPERIDINE 25 MG/1 ML VIAL IV STA (20:13)
[2019-01-17 20:57] LABS: Apearance,Urine CLEAR (Clear); Bilirubin,Urine Negative (Negative); Blood, Urine Negative (Negative); Glucose,Urine (UA) Negative (Negative); Ketones,Urine 80 mg/dL (Negative); Mucus,Urine Few /LPF (Occasional); Nitrite,Urine Negative (Negative); Protein,Urine 30 MG/DL; Squamous Epithelial Cell,Urine Occasional /HPF (0-10); Urine Color Yellow (Yellow)
[2019-01-17] MEDS ORDERED: fentaNYL 12 MCG/HR PATCH TRANSDERM SCH (21:00)
[2019-01-17] MEDS ORDERED: traZODone 50 MG TABLET PO PRN (21:49)
[2019-01-17] MEDS: SODIUM CHLORIDE 0.9% 1,000 ML IV SCH (22:34)
[2019-01-17] MEDS: DRONABINOL 2.5 MG CAPSULE PO SCH (22:45)
[2019-01-17] MEDS: ENOXAPARIN 40 MG/0.4 ML SYRINGE SUBCUT SCH (22:45)
[2019-01-18] MEDS: MEPERIDINE 25 MG/1 ML VIAL IV PRN ×3 (00:47→18:06)
[2019-01-18 04:46] LABS: Albumin 3.3 G/DL (3.4-5.0); Calcium 9.3 MG/DL (8.5-10.1); Osmolality,Calculated 255.9 MOS/KG (273-304); Total Protein 6.7 G/DL (6.4-8.3)
[2019-01-18 04:53] LABS: Folate 14.9 NG/ML (5.4-24.0)
[2019-01-18 05:52] LABS: Basophils % 0.2 % (0.0-0.8); Immature Granulocytes % 0.6 %; Immature Granulocytes Absolute 0.03 #; Lymphocytes # 0.8 10*3/uL (1.4-4.0); Lymphocytes % 16.4 % (21.3-54.2); Mean Corpuscular HGB Conc 32.6 GM/DL (32-36); Mean Corpuscular Volume 103.8 FL (87-102); Mean Platelet Volume 8.1 FL (9.6-12.0); Monocytes % 17.6 % (1.7-12.7); Neutrophils % 65.2 % (38.7-73.9); Platelet Count 220 T/CUMM (130-400); Red Cell Distribution Width 14.4 % (9.3-17.3); White Blood Count 5.1 T/CUMM (4-12)
[2019-01-18 05:56] LABS: Hemoglobin 8.8 GM/DL (12.0-16.0)
[2019-01-18 06:12] LABS: Band Neutrophils 1 % (0-10); Lymphocytes 16 % (20-55); Platelet Estimate Normal; Segmented Neutrophils 66 % (50-85); Total Cells Counted 100
[2019-01-18 06:13] LABS: Anisocytosis 1+; Hypochromasia 1+; Macrocytosis 1+
[2019-01-18] MEDS: DRONABINOL 2.5 MG CAPSULE PO SCH ×2 (08:32→20:19)
[2019-01-18] MEDS: amLODIPine 5 MG TABLET PO SCH (08:32)
[2019-01-18] MEDS: POTASSIUM CHLORIDE 20 MEQ TABLET PO SCH (08:32)
[2019-01-18] MEDS: SODIUM CHLORIDE 0.9% 1,000 ML IV SCH (15:42)
[2019-01-18] MEDS: POLYETHYLENE GLYCOL POWDER 17 GM PACK PO SCH (20:19)
[2019-01-18] MEDS: ENOXAPARIN 40 MG/0.4 ML SYRINGE SUBCUT SCH (22:29)
[2019-01-19] MEDS: MEPERIDINE 25 MG/1 ML VIAL IV PRN ×2 (00:10→06:37)
[2019-01-19 04:42] LABS: Basophils % 0.2 % (0.0-0.8); Hematocrit 20.5 VOL% (35.7-47.0); Hemoglobin 7.9 GM/DL (12.0-16.0); Immature Granulocytes % 0.7 %; Immature Granulocytes Absolute 0.03 #; Lymphocytes # 0.7 10*3/uL (1.4-4.0); Lymphocytes % 14.5 % (21.3-54.2); Mean Corpuscular HGB Conc 38.5 GM/DL (32-36); Mean Platelet Volume 8.3 FL (9.6-12.0); Monocytes % 16.9 % (1.7-12.7); Neutrophils % 67.7 % (38.7-73.9); Platelet Count 214 T/CUMM (130-400); Red Blood Count 1.83 MC/CUMM (3.8-5.5); Red Cell Distribution Width 18.5 % (9.3-17.3); White Blood Count 4.6 T/CUMM (4-12)
[2019-01-19] MEDS: SODIUM CHLORIDE 0.9% 1,000 ML IV SCH ×2 (04:54→13:49)
[2019-01-19 05:05] LABS: Hypochromasia Slight; Lymphocytes 9 % (20-55); Platelet Estimate Adequate; Polychromasia Few; Segmented Neutrophils 78 % (50-85); Total Cells Counted 100
[2019-01-19 05:11] LABS: Calcium 8.9 MG/DL (8.5-10.1); Osmolality,Calculated 260.5 MOS/KG (273-304)
[2019-01-19 05:29] LABS: Albumin 2.9 G/DL (3.4-5.0); Bilirubin,Direct 0.45 MG/DL (0.0-0.20); Bilirubin,Indirect 2.1 MG/DL (0.0-1.0); Bilirubin,Total 2.5 MG/DL (0.2-1.0); Total Protein 6.1 G/DL (6.4-8.3)
[2019-01-19] MEDS: PANTOPRAZOLE 40 MG TABLET PO SCH ×2 (06:28→18:17)
[2019-01-19] MEDS ORDERED: fentaNYL 25 MCG/HR PATCH TRANSDERM SCH (09:00)
[2019-01-19] MEDS: amLODIPine 5 MG TABLET PO SCH (09:03)
[2019-01-19] MEDS: POTASSIUM CHLORIDE 20 MEQ TABLET PO SCH (09:03)
[2019-01-19] MEDS: POLYETHYLENE GLYCOL POWDER 17 GM PACK PO SCH ×2 (09:03→22:47)
[2019-01-19] MEDS: DRONABINOL 2.5 MG CAPSULE PO SCH ×2 (10:04→22:02)
[2019-01-19] MEDS ORDERED: SODIUM CHLORIDE 0.9% 1,000 ML IV PRN (13:12)
[2019-01-19] MEDS: ONDANSETRON 4 MG/2 ML VIAL IV PRN (14:30)
[2019-01-19] MEDS: oxyCODONE/ACETAMINOPHEN 5-325 MG TABLET PO PRN ×2 (14:30→22:02)
[2019-01-19] MEDS: fentaNYL 25 MCG/HR PATCH TRANSDERM SCH (16:20)
[2019-01-19] MEDS: ENOXAPARIN 40 MG/0.4 ML SYRINGE SUBCUT SCH ×2 (22:02→22:48)
[2019-01-20] MEDS: MEPERIDINE 25 MG/1 ML VIAL IV PRN (02:04)
[2019-01-20 04:50] LABS: Basophils % 0.2 % (0.0-0.8); Hematocrit 27.7 VOL% (35.7-47.0); Immature Granulocytes % 0.7 %; Immature Granulocytes Absolute 0.03 #; Lymphocytes # 0.7 10*3/uL (1.4-4.0); Lymphocytes % 15.9 % (21.3-54.2); Mean Corpuscular HGB Conc 38.3 GM/DL (32-36); Mean Corpuscular Volume 104.9 FL (87-102); Mean Platelet Volume 8.1 FL (9.6-12.0); Monocytes % 15.2 % (1.7-12.7); Platelet Count 191 T/CUMM (130-400); Red Blood Count 2.64 MC/CUMM (3.8-5.5); Red Cell Distribution Width 20.7 % (9.3-17.3); White Blood Count 4.5 T/CUMM (4-12)
[2019-01-20 05:08] LABS: Hemoglobin 10.6 GM/DL (12.0-16.0)
[2019-01-20 05:14] LABS: Calcium 8.9 MG/DL (8.5-10.1); Osmolality,Calculated 263.2 MOS/KG (273-304)
[2019-01-20 05:24] LABS: Platelet Estimate Adequate; Polychromasia Few
[2019-01-20] MEDS: SODIUM CHLORIDE 0.9% 1,000 ML IV SCH ×3 (07:35→22:27)
[2019-01-20] MEDS: PANTOPRAZOLE 40 MG TABLET PO SCH ×2 (07:52→18:03)
[2019-01-20] MEDS: amLODIPine 5 MG TABLET PO SCH (08:50)
[2019-01-20] MEDS: DRONABINOL 2.5 MG CAPSULE PO SCH ×2 (08:51→21:48)
[2019-01-20] MEDS: POTASSIUM CHLORIDE 20 MEQ TABLET PO SCH (08:51)
[2019-01-20] MEDS: POLYETHYLENE GLYCOL POWDER 17 GM PACK PO SCH ×2 (08:53→21:54)
[2019-01-20] MEDS: CYANOCOBALAMIN 1000 MCG/1 ML VIAL SUBCUT SCH (09:01)
[2019-01-20] MEDS ORDERED: ceFAZolin 1,000 MG in SYRINGE 1 EACH IV ONE (10:33)
[2019-01-20] MEDS: oxyCODONE/ACETAMINOPHEN 5-325 MG TABLET PO PRN (15:34)
[2019-01-21] MEDS ORDERED: LIDOCAINE 1%/EPI INJ 20 ML VIAL ONE (06:52)
[2019-01-21] MEDS ORDERED: BUPIVACAINE MPF 0.25% 30 ML VIAL ONE (06:52)
[2019-01-21] MEDS ORDERED: HEPARIN 5,000 UNIT/1 ML VIAL ONE (06:54)
[2019-01-21] MEDS ORDERED: TISSUE ADHESIVE 1 EACH APPLICATOR TOP ONE (06:54)
[2019-01-21] MEDS: PANTOPRAZOLE 40 MG TABLET PO SCH ×2 (07:21→18:08)
[2019-01-21] MEDS ORDERED: ceFAZolin 1,000 MG in SYRINGE 1 EACH IV ONE (07:30)
[2019-01-21] MEDS ORDERED: PROPOFOL 200 MG/20 ML VIAL IV ONE (09:02)
[2019-01-21] MEDS ORDERED: KETAMINE 500 MG/10 ML VIAL ONE (09:02)
[2019-01-21] MEDS ORDERED: SODIUM CHLORIDE 0.9% 250 ML IV ONE (09:02)
[2019-01-21] MEDS ORDERED: MIDAZOLAM 2 MG/2 ML VIAL ONE (09:02)
[2019-01-21] MEDS ORDERED: fentaNYL 100 MCG/2 ML VIAL ONE (09:02)
[2019-01-21] MEDS ORDERED: ONDANSETRON 4 MG/2 ML VIAL ONE (09:03)
[2019-01-21] MEDS: amLODIPine 5 MG TABLET PO SCH (09:47)
[2019-01-21] MEDS: DRONABINOL 2.5 MG CAPSULE PO SCH ×2 (09:47→20:00)
[2019-01-21] MEDS: POLYETHYLENE GLYCOL POWDER 17 GM PACK PO SCH ×2 (09:47→20:01)
[2019-01-21] MEDS: CYANOCOBALAMIN 1000 MCG/1 ML VIAL SUBCUT SCH (09:47)
[2019-01-21] MEDS: POTASSIUM CHLORIDE 20 MEQ TABLET PO SCH (09:47)
[2019-01-21] MEDS: MEPERIDINE 25 MG/1 ML VIAL IV PRN ×2 (12:42→18:13)
[2019-01-21] MEDS: ONDANSETRON 4 MG/2 ML VIAL IV PRN ×2 (12:43→18:13)
[2019-01-21] MEDS: SODIUM CHLORIDE 0.9% 1,000 ML IV SCH (16:10)
[2019-01-22] MEDS: MEPERIDINE 25 MG/1 ML VIAL IV PRN ×3 (00:07→11:57)
[2019-01-22] MEDS: PANTOPRAZOLE 40 MG TABLET PO SCH (05:10)
[2019-01-22] MEDS: DRONABINOL 2.5 MG CAPSULE PO SCH (09:09)
[2019-01-22] MEDS: POLYETHYLENE GLYCOL POWDER 17 GM PACK PO SCH (09:09)
[2019-01-22] MEDS: amLODIPine 5 MG TABLET PO SCH (09:09)
[2019-01-22] MEDS: CYANOCOBALAMIN 1000 MCG/1 ML VIAL SUBCUT SCH (09:09)
[2019-01-22] MEDS: POTASSIUM CHLORIDE 20 MEQ TABLET PO SCH (09:09)
[2019-01-22] MEDS: fentaNYL 25 MCG/HR PATCH TRANSDERM SCH (09:10)
[2019-01-22 12:10] VITALS: BP 139/83
== END 2019-01-22 13:36 | disposition home or self-care (01) | DRG 181 ==
LOC: N.EDINP 16:53 → N.ED 16:53 → N.3E 21:00
PROVIDERS: ADMIT Internal Medicine; ATTEND Internal Medicine

== ENCOUNTER 2019-02-27 08:58 | Inpatient (IN) ==
[2019-02-27] MEDS ORDERED: ONDANSETRON 4 MG/2 ML VIAL IV STA (09:37)
[2019-02-27] MEDS ORDERED: HYDROmorphone 2 MG/1 ML VIAL IV STA (09:37)
[2019-02-27 10:27] LABS: Basophils # 0.1 10*3/uL (0.0-0.2); Basophils % 5.1 % (0.0-0.8); Hematocrit 23.5 VOL% (35.7-47.0); Immature Granulocytes % 5.1 %; Immature Granulocytes Absolute 0.07 #; Lymphocytes # 0.8 10*3/uL (1.4-4.0); Lymphocytes % 60.3 % (21.3-54.2); Mean Platelet Volume 9.3 FL (9.6-12.0); Monocytes % 16.2 % (1.7-12.7); NRBC # 0.02 10*3/uL; Neutrophils % 13.3 % (38.7-73.9); Platelet Count 204 T/CUMM (130-400); Red Blood Count 2.35 MC/CUMM (3.8-5.5); Red Cell Distribution Width 21.2 % (9.3-17.3); White Blood Count 1.4 T/CUMM (4-12)
[2019-02-27 10:50] LABS: Calcium 9.9 MG/DL (8.5-10.1); Osmolality,Calculated 268.1 MOS/KG (273-304)
[2019-02-27 11:15] LABS: Atypical Lymphocytes Few; Eosinophils 2 % (0-10); Lymphocytes 66 % (20-55); Nucleated Red Blood Cells 1 (0-5); Segmented Neutrophils 16 % (50-85); Total Cells Counted 100
[2019-02-27 11:19] LABS: Anisocytosis 1+; Hypochromasia 1+; Macrocytosis 1+; Ovalocytes Slight; Polychromasia Slight
[2019-02-27 11:20] LABS: Platelet Estimate Normal
[2019-02-27] MEDS ORDERED: cefTRIAXone 1,000 MG in SODIUM CHLORIDE 0.9% 100 ML IV STA (11:45)
[2019-02-27] MEDS ORDERED: MYLANTA/LIDO VISC 2:1 300 ML BOTTLE SWISH/SWAL PRN (11:58)
[2019-02-27] MEDS ORDERED: chlorproMAZINE INJ 50 MG in SODIUM CHLORIDE 0.9% 100 ML IV PRN (11:58)
[2019-02-27] MEDS ORDERED: chlorproMAZINE INJ 25 MG in SODIUM CHLORIDE 0.9% 100 ML IV PRN (11:58)
[2019-02-27] MEDS ORDERED: MAGNESIUM HYDROXIDE SUSP 30 ML UDCUP PO PRN (11:58)
[2019-02-27] MEDS ORDERED: ALPRAZolam 0.25 MG TABLET PO PRN (11:58)
[2019-02-27] MEDS ORDERED: diphenhydrAMINE CAP 25 MG CAPSULE PO PRN (11:58)
[2019-02-27] MEDS ORDERED: LACTULOSE 20 GM/30 ML UDCUP PO PRN (11:58)
[2019-02-27] MEDS ORDERED: PROMETHAZINE INJ 25 MG in SODIUM CHLORIDE 0.9% 50 ML IV PRN (11:58)
[2019-02-27] MEDS ORDERED: chlorproMAZINE 25 MG TABLET PO PRN (11:58)
[2019-02-27] MEDS ORDERED: ALUMINUM/MAGNES/SIMETH MAX STR 30 ML UDCUP PO PRN (11:58)
[2019-02-27] MEDS ORDERED: LOPERAMIDE 2 MG CAPSULE PO PRN ×2 (11:58)
[2019-02-27] MEDS ORDERED: BENZTROPINE 2 MG/2 ML AMP IV PRN (11:58)
[2019-02-27] MEDS ORDERED: ONDANSETRON 4 MG/2 ML VIAL IV PRN (11:58)
[2019-02-27] MEDS ORDERED: MYLANTA/LIDO VISC 2:1 300 ML BOTTLE SWISH/SPIT PRN (11:58)
[2019-02-27] MEDS ORDERED: TEMAZEPAM 7.5 MG CAPSULE PO PRN (11:58)
[2019-02-27] MEDS ORDERED: FILGRASTIM-SNDZ 480 MCG/0.8 ML SYRINGE SUBCUT ONE ×2 (12:01→13:00)
[2019-02-27] MEDS ORDERED: oxyCODONE/ACETAMINOPHEN 5-325 MG TABLET PO PRN (12:02)
[2019-02-27 12:19] LABS: Apearance,Urine CLEAR (Clear); Bacteria,Urine Occasional /HPF (Few); Blood, Urine Negative (Negative); Glucose,Urine (UA) Negative (Negative); Ketones,Urine 20 mg/dL (Negative); Mucus,Urine Many /LPF (Occasional); Nitrite,Urine Negative (Negative); Protein,Urine 100 MG/DL; RBC,Urine 4 /HPF (0-4); Squamous Epithelial Cell,Urine Occasional /HPF (0-10); Urine Color Amber (Yellow); WBC,Urine 4 /HPF (0-6)
[2019-02-27 12:20] LABS: Bilirubin,Urine Moderate mg/dL (Negative)
[2019-02-27 12:23] LABS: Albumin 3.5 G/DL (3.4-5.0); Bilirubin,Total 1.8 MG/DL (0.2-1.0); Calcium 9.3 MG/DL (8.5-10.1); Total Protein 7.1 G/DL (6.4-8.3); Uric Acid 3.3 MG/DL (2.6-6.0)
[2019-02-27] MEDS: ENOXAPARIN 30 MG/0.3 ML SYRINGE SUBCUT SCH (12:31)
[2019-02-27] MEDS: SODIUM CHLORIDE 0.9% 1,000 ML IV SCH (12:32)
[2019-02-27] MEDS: HYDROmorphone 2 MG/1 ML VIAL IV PRN (19:23)
[2019-02-27] MEDS: DRONABINOL 2.5 MG CAPSULE PO SCH (20:51)
[2019-02-28] MEDS: HYDROmorphone 2 MG/1 ML VIAL IV PRN ×4 (00:43→21:04)
[2019-02-28] MEDS: SODIUM CHLORIDE 0.9% 1,000 ML IV SCH (00:46)
[2019-02-28] MEDS: DRONABINOL 2.5 MG CAPSULE PO SCH ×2 (08:06→20:30)
[2019-02-28] MEDS: PANTOPRAZOLE 40 MG TABLET PO SCH (08:07)
[2019-02-28] MEDS: POTASSIUM CHLORIDE 20 MEQ TABLET PO SCH (08:07)
[2019-02-28] MEDS: amLODIPine 5 MG TABLET PO SCH (08:07)
[2019-02-28] MEDS: guaiFENesin 200 MG/10 ML UDCUP PO PRN (08:16)
[2019-02-28] MEDS ORDERED: fentaNYL 50 MCG/HR PATCH TRANSDERM SCH (09:00)
[2019-02-28] MEDS ORDERED: fentaNYL 75 MCG/HR PATCH TRANSDERM SCH (09:30)
[2019-02-28] MEDS: cefTRIAXone 1,000 MG in SYRINGE 1 EACH IV SCH (13:35)
[2019-02-28] MEDS: ENOXAPARIN 30 MG/0.3 ML SYRINGE SUBCUT SCH (13:36)
[2019-03-01] MEDS: SODIUM CHLORIDE 0.9% 1,000 ML IV SCH ×3 (01:53→19:32)
[2019-03-01 04:45] LABS: Hematocrit 19.4 VOL% (35.7-47.0); Hemoglobin 6.7 GM/DL (12.0-16.0); Immature Granulocytes % 16.3 %; Immature Granulocytes Absolute 0.66 #; Lymphocytes # 0.9 10*3/uL (1.4-4.0); Lymphocytes % 21.8 % (21.3-54.2); Mean Corpuscular HGB Conc 34.5 GM/DL (32-36); Mean Platelet Volume 9.5 FL (9.6-12.0); Monocytes % 22.5 % (1.7-12.7); NRBC # 0.31 10*3/uL; Neutrophils % 38.4 % (38.7-73.9); Platelet Count 184 T/CUMM (130-400); Red Blood Count 1.92 MC/CUMM (3.8-5.5); Red Cell Distribution Width 20.6 % (9.3-17.3)
[2019-03-01 05:16] LABS: Calcium 8.6 MG/DL (8.5-10.1); Osmolality,Calculated 268.8 MOS/KG (273-304)
[2019-03-01 05:26] LABS: Atypical Lymphocytes Few; Band Neutrophils 7 % (0-10); Eosinophils 1 % (0-10); Hypochromasia 1+; Lymphocytes 17 % (20-55); Macrocytosis Slight; Nucleated Red Blood Cells 8 (0-5); Platelet Estimate Adequate; Polychromasia Slight; Segmented Neutrophils 54 % (50-85); Total Cells Counted 100
[2019-03-01] MEDS: DRONABINOL 2.5 MG CAPSULE PO SCH ×2 (08:48→20:04)
[2019-03-01] MEDS: FILGRASTIM-SNDZ 300 MCG/0.5 ML SYRINGE SUBCUT SCH (08:48)
[2019-03-01] MEDS: amLODIPine 5 MG TABLET PO SCH (08:49)
[2019-03-01] MEDS: PANTOPRAZOLE 40 MG TABLET PO SCH (08:49)
[2019-03-01] MEDS: POTASSIUM CHLORIDE 20 MEQ TABLET PO SCH (08:49)
[2019-03-01] MEDS ORDERED: SODIUM CHLORIDE 0.9% 1,000 ML IV PRN (09:22)
[2019-03-01] MEDS ORDERED: SODIUM PHOSPHATE ENEMA 133 ML BOTTLE RECTAL PRN (09:23)
[2019-03-01] MEDS: cefTRIAXone 1,000 MG in SYRINGE 1 EACH IV SCH (11:16)
[2019-03-01] MEDS: ENOXAPARIN 30 MG/0.3 ML SYRINGE SUBCUT SCH (11:17)
[2019-03-01] MEDS: guaiFENesin 200 MG/10 ML UDCUP PO PRN (20:04)
[2019-03-01] MEDS: HYDROmorphone 2 MG/1 ML VIAL IV PRN (22:26)
[2019-03-02] MEDS: HYDROmorphone 2 MG/1 ML VIAL IV PRN ×2 (04:55→17:38)
[2019-03-02 05:40] LABS: Basophils % 0.2 % (0.0-0.8); Eosinophils % 0.1 % (0.00-10.9); Hematocrit 28.9 VOL% (35.7-47.0); Immature Granulocytes % 4.4 %; Immature Granulocytes Absolute 0.43 #; Lymphocytes # 0.9 10*3/uL (1.4-4.0); Lymphocytes % 8.9 % (21.3-54.2); Mean Corpuscular HGB Conc 34.3 GM/DL (32-36); Mean Corpuscular Volume 99.7 FL (87-102); Mean Platelet Volume 9.3 FL (9.6-12.0); Monocytes % 17.5 % (1.7-12.7); NRBC # 0.49 10*3/uL; Neutrophils % 68.9 % (38.7-73.9); Platelet Count 162 T/CUMM (130-400); Red Cell Distribution Width 22.5 % (9.3-17.3)
[2019-03-02 05:54] LABS: White Blood Count 9.9 T/CUMM (4-12)
[2019-03-02 05:55] LABS: Hemoglobin 9.9 GM/DL (12.0-16.0)
[2019-03-02 06:01] LABS: Calcium 8.7 MG/DL (8.5-10.1); Osmolality,Calculated 272.5 MOS/KG (273-304)
[2019-03-02 06:14] LABS: Eosinophils 1 % (0-10); Lymphocytes 5 % (20-55); Nucleated Red Blood Cells 7 (0-5); Platelet Estimate Adequate; Polychromasia Few; Segmented Neutrophils 80 % (50-85); Total Cells Counted 100
[2019-03-02] MEDS: DRONABINOL 2.5 MG CAPSULE PO SCH ×2 (08:51→20:01)
[2019-03-02] MEDS: FILGRASTIM-SNDZ 300 MCG/0.5 ML SYRINGE SUBCUT SCH (08:51)
[2019-03-02] MEDS: PANTOPRAZOLE 40 MG TABLET PO SCH (08:51)
[2019-03-02] MEDS: POTASSIUM CHLORIDE 20 MEQ TABLET PO SCH (08:51)
[2019-03-02] MEDS: amLODIPine 5 MG TABLET PO SCH (08:51)
[2019-03-02] MEDS: cefTRIAXone 1,000 MG in SYRINGE 1 EACH IV SCH (11:24)
[2019-03-02] MEDS: SODIUM CHLORIDE 0.9% 1,000 ML IV SCH (11:24)
[2019-03-02] MEDS: ENOXAPARIN 30 MG/0.3 ML SYRINGE SUBCUT SCH (11:25)
[2019-03-02 16:38] VITALS: BP 116/71
== END 2019-03-02 20:36 | disposition home or self-care (01) | DRG 543 ==
LOC: N.ED 08:58 → N.EDINP 11:58 → N.4E 12:38
PROVIDERS: ADMIT Specialist; ATTEND Specialist